=== PATIENT | female | born 1970 | race Caucasian/White ===

== ENCOUNTER 2016-07-15 18:35 | Emergency (ER) | payer OTHER ==
[~2016-07-15] VITALS: Ht 175.3 cm; Wt 147.6 kg
[~2016-07-15 18:35] MED LIST: ANTIVERT25 MG PO; ARMOUR THYROID120 MG PO; ARMOUR THYROID180 MG PO; COZAAR100 MG PO; ESCITALOPRAM OX10 MG PO; HEPARIN SO5000 UNITS SC; HUMALOG100 UNIT/2 SC; LISINOPRIL10 MG PO; LOSARTAN POTAS100 MG PO; MIRALAX17 GM PO; MOTRIN800 MG PO; NAPROSYN500 MG PO; ONDANSETRON ODT4 MG PO; PRAVASTATIN SOD40 MG PO; PROTONIX40 MG PO; SUMATRIPTAN SU100 MG PO; TOPIRAMATE25 MG PO; TOUJEO SOL300 UNIT/1 SC; TRULICITY1.5 MG/0.5 SC; ULTRAM50 MG PO; VESICARE10 MG PO; ZOFRAN ODT4 MG PO; ZYRTEC10 M3 PO
[2016-07-15 18:59] LABS: HEMATOCRIT 41.6 % (36.0-46.0); MCH 29.6 PG (29.0-34.0); MCHC 33.4 G/DL (30.0-36.0); MCV 88.7 FL (83-99); MEAN PLAT.VOLUME 10.5 uM^3 (9.5-12.4); PLATELET COUNT 293 K/uL (156-360); RBC DIS.WIDTH-CV 13.2 % (11.8-14.6); RBC DIS.WIDTH-SD 42.5 % (39-53); RED BLOOD COUNT 4.69 M/uL (3.80-5.20); WHITE BLOOD COUNT 8.7 K/uL (4.1-10.2)
[2016-07-15 19:06] LABS: CHLORIDE 107 mEq/L (99-109); POTASSIUM 4.5 mEq/L (3.7-5.4); SODIUM 141 mEq/L (136-147)
[2016-07-15 19:08] LABS: GLUCOSE 171 mg/dL (70-99)
[2016-07-15 19:09] LABS: ANION GAP 10 MEQ/L (2-14)
[2016-07-15 19:10] LABS: TOTAL BILIRUBIN 0.5 mg/dL (0.0-1.0)
[2016-07-15 19:11] LABS: ALKALINE PHOSPHATASE 76 IU/L (3-129)
[2016-07-15 19:12] LABS: GFR ESTIMATE (CALCULATED) > 59 mL/min/
[2016-07-15 19:13] LABS: UREA NITROGEN (BUN) 15 mg/dL (9-23)
[2016-07-15 19:22] LABS: QUANTITATIVE HCG < 4.0 MIU/ML
[2016-07-15 19:37] LABS: LIPASE 13 U/L (1.0-51.0)
[2016-07-15 19:57] LABS: COLOR YELLOW ((YELLOW)); LEUKOCYTES TRACE; NITRITE POSITIVE; PH, URINE 7.5 (5-8); PROTEIN (STRIP) TRACE; SPECIFIC GRAVITY 1.019 (1.000-1.030)
[2016-07-15 19:58] LABS: ADD MIUA? YES; BILIRUBIN NEGATIVE; BLOOD MODERATE; GLUCOSE (STRIP) NEGATIVE; KETONES NEGATIVE; UROBILINOGEN 0.2 MG/DL (0.2-1.0)
[2016-07-15 19:59] LABS: BACTERIA 2+ /HPF; EPITHELIAL CELLS RARE /HPF; MUCUS RARE /LPF; RED BLOOD CELLS 0-5 /HPF (0-5); UCUL ADDED? NO; WHITE BLOOD CELLS 0-5 /HPF (0-5)
[2016-07-15] MEDS ORDERED: CITRATE OF MAG296 ML PO (22:59)
[2016-07-15 23:52] VITALS: BP 155/88
== END 2016-07-15 23:53 | disposition home or self-care (01) ==
LOC: EME 18:35
DX: K59.00 Constipation, unspecified (principal); R10.9 Unspecified abdominal pain; E11.9 Type 2 diabetes mellitus without complications; G47.30 Sleep apnea, unspecified; Z87.442 Personal history of urinary calculi
CPT/HCPCS: 74177; 80053; 81003; 83690; 84702; 85027; 99281; 99285; J1885; J2405; J7040

== ENCOUNTER 2016-08-16 14:53 | Observation (INO) | payer OTHER ==
[~2016-08-16] VITALS: Ht 175.3 cm; Wt 149.5 kg
[~2016-08-16 14:53] MED LIST changes: +CITRATE OF MAG296 ML PO
[2016-08-16 16:20] LABS: HEMATOCRIT 36.5 % (36.0-46.0); MCH 30.2 PG (29.0-34.0); MCHC 33.7 G/DL (30.0-36.0); MCV 89.7 FL (83-99); MEAN PLAT.VOLUME 10.4 uM^3 (9.5-12.4); PLATELET COUNT 220 K/uL (156-360); RBC DIS.WIDTH-SD 41.9 % (39-53); RED BLOOD COUNT 4.07 M/uL (3.80-5.20); WHITE BLOOD COUNT 8.8 K/uL (4.1-10.2)
[2016-08-16 16:29] LABS: CHLORIDE 109 mEq/L (99-109); POTASSIUM 3.9 mEq/L (3.7-5.4); SODIUM 140 mEq/L (136-147)
[2016-08-16 16:31] LABS: GLUCOSE 147 mg/dL (70-99)
[2016-08-16 16:32] LABS: ANION GAP 10 MEQ/L (2-14)
[2016-08-16 16:35] LABS: GFR ESTIMATE (CALCULATED) > 59 mL/min/
[2016-08-16 16:36] LABS: UREA NITROGEN (BUN) 16 mg/dL (9-23)
[2016-08-16 16:42] LABS: TROP-I INTERPRETATION NEGATIVE; TROPONIN-I < 0.01 ng/mL (0.0-0.30)
[2016-08-16 17:59] LABS: D-DIMER ELISA 0.52 mg/L FEU (< 0.57); PROTHROMBIN TIME 10.6 (9.2-11.2); PTT 28.4 (25-32)
[2016-08-16 18:12] LABS: QUANTITATIVE HCG < 4.0 MIU/ML
[2016-08-16 19:51] LABS: TROP-I INTERPRETATION NEGATIVE; TROPONIN-I < 0.01 ng/mL (0.0-0.30)
[2016-08-16] MEDS ORDERED: LISINOPRIL20 MG PO (21:49)
[2016-08-16] MEDS ORDERED: HUMALOG KW200 UNIT/1 SC (21:51)
[2016-08-16] MEDS ORDERED: VENTOLIN HFA18 GM IH (21:51)
[2016-08-16] MEDS ORDERED: TRESIBA FL200 UNIT/1 SC (21:52)
[2016-08-16] MEDS ORDERED: SINGULAIR10 MG PO (21:52)
[2016-08-16] MEDS ORDERED: IBUPROFEN800 MG PO (21:52)
[2016-08-16 23:59] VITALS: BP 136/62
[2016-08-17 02:53] VITALS: BP 102/50
[2016-08-17 03:21] LABS: HEMATOCRIT 38.1 % (36.0-46.0); MCH 29.7 PG (29.0-34.0); MCHC 33.3 G/DL (30.0-36.0); MCV 89.2 FL (83-99); MEAN PLAT.VOLUME 10.6 uM^3 (9.5-12.4); PLATELET COUNT 242 K/uL (156-360); RBC DIS.WIDTH-SD 42.4 % (39-53); RED BLOOD COUNT 4.27 M/uL (3.80-5.20); WHITE BLOOD COUNT 8.9 K/uL (4.1-10.2)
[2016-08-17 03:34] LABS: CHLORIDE 107 mEq/L (99-109); POTASSIUM 3.7 mEq/L (3.7-5.4); SODIUM 141 mEq/L (136-147)
[2016-08-17 03:36] LABS: GLUCOSE 119 mg/dL (70-99)
[2016-08-17 03:37] LABS: ANION GAP 12 MEQ/L (2-14)
[2016-08-17 03:40] LABS: GFR ESTIMATE (CALCULATED) > 59 mL/min/
[2016-08-17 03:41] LABS: UREA NITROGEN (BUN) 13 mg/dL (9-23)
[2016-08-17 03:45] LABS: TROP-I INTERPRETATION NEGATIVE; TROPONIN-I < 0.01 ng/mL (0.0-0.30)
[2016-08-17 09:04] LABS: TROP-I INTERPRETATION NEGATIVE; TROPONIN-I < 0.01 ng/mL (0.0-0.30)
[2016-08-17 09:17] LABS: POINT-OF-CARE METER ID UU14162513
[2016-08-17 09:50] VITALS: BP 130/60
[2016-08-17 11:49] VITALS: BP 133/69
[2016-08-17 12:05] LABS: POINT-OF-CARE METER ID UU14162513
[2016-08-17 15:39] VITALS: BP 128/58
[2016-08-17 17:31] LABS: POINT-OF-CARE METER ID UU14162513
[2016-08-17 21:16] LABS: POINT-OF-CARE METER ID UU14162513
[2016-08-17 21:50] VITALS: BP 151/65
[2016-08-17 23:30] VITALS: BP 134/65
[2016-08-18 04:22] VITALS: BP 105/55
[2016-08-18 07:33] LABS: ANION GAP 9 MEQ/L (2-14); CHLORIDE 105 MEQ/L (99-109); GFR ESTIMATE (CALCULATED) > 59 mL/min/; GLUCOSE 127 mg/dL (70-99); POTASSIUM 3.4 MEQ/L (3.7-5.4); SAMPLE HEMOLYSIS CHECK 0; SAMPLE ICTERIC CHECK 0; SAMPLE LIPEMIA CHECK 0; SODIUM 140 MEQ/L (136-147); UREA NITROGEN (BUN) 16 mg/dL (9-23)
[2016-08-18 08:45] LABS: POINT-OF-CARE METER ID UU14162513
[2016-08-18 09:37] VITALS: BP 125/60
[2016-08-18 09:48] LABS: ADD MIUA? YES; BILIRUBIN NEGATIVE; BLOOD NEGATIVE; COLOR YELLOW ((YELLOW)); GLUCOSE (STRIP) NEGATIVE; KETONES NEGATIVE; LEUKOCYTES NEGATIVE; NITRITE POSITIVE; PROTEIN (STRIP) NEGATIVE; SPECIFIC GRAVITY 1.018 (1.000-1.030); UROBILINOGEN 0.2 MG/DL (0.2-1.0)
[2016-08-18 10:28] LABS: BACTERIA 2+ /HPF; EPITHELIAL CELLS RARE /HPF; MUCUS 2+ /LPF; RED BLOOD CELLS 0-5 /HPF (0-5); UCUL ADDED? NO; WHITE BLOOD CELLS 0-5 /HPF (0-5)
[2016-08-18] MEDS ORDERED: LASIX20 MG PO (11:20)
[2016-08-18] MEDS ORDERED: KLOR-CON SPRIN10 MEQ PO (11:22)
[2016-08-18] MEDS ORDERED: BACTRIM,SEPT1 TABLET PO (11:49)
[2016-08-18 12:43] LABS: POINT-OF-CARE METER ID UU13113831
[2016-08-18] MEDS ORDERED: VENTOLIN HFA18 GM IH (13:10)
== END 2016-08-18 13:26 | disposition home or self-care (01) ==
LOC: EME 14:53 → 5WEST 22:51 → EDOF 22:51 → 5WEST 23:43
PROVIDERS: Emergency Medicine; Hospitalist
DX: I11.0 Hypertensive heart disease with heart failure (principal); I50.33 Acute on chronic diastolic (congestive) heart failure; E87.6 Hypokalemia; N39.0 Urinary tract infection, site not specified; I27.2 Other secondary pulmonary hypertension; E11.9 Type 2 diabetes mellitus without complications; I48.0 Paroxysmal atrial fibrillation; E78.5 Hyperlipidemia, unspecified; E66.01 Morbid (severe) obesity due to excess calories; Z68.42 Body mass index [BMI] 45.0-49.9, adult; E03.9 Hypothyroidism, unspecified; G47.30 Sleep apnea, unspecified; Z79.4 Long term (current) use of insulin
CPT/HCPCS: 71020; 71275; 80048; 81003; 82948; 83880; 84484; 84702; 85027; 85379; 85610; 85730; 93005; 93306; 94640; 94640 76; 99202; 99281; 99285; G0378; J1644; J1815; J1885; J1940; J2270; J3010; J7030

== ENCOUNTER 2017-07-09 10:18 | Emergency (ER) | payer OTHER ==
[~2017-07-09] VITALS: Ht 175.3 cm; Wt 163.3 kg
[~2017-07-09 10:18] MED LIST changes: +BACTRIM,SEPT1 TABLET PO; +HUMALOG KW200 UNIT/1 SC; +IBUPROFEN800 MG PO; +KLOR-CON SPRIN10 MEQ PO; +LASIX20 MG PO; +LISINOPRIL20 MG PO; +SINGULAIR10 MG PO; +TRESIBA FL200 UNIT/1 SC; +VENTOLIN HFA18 GM IH
[2017-07-09 11:24] LABS: HEMATOCRIT 40.8 % (36.0-46.0); HEMOGLOBIN 14.2 G/DL (11.9-15.5); MCH 31.3 PG (29.0-34.0); MCHC 34.8 G/DL (30.0-36.0); MCV 89.9 FL (83-99); PLATELET COUNT 209 K/uL (156-360); RBC DIS.WIDTH-CV 12.8 % (11.8-14.6); RBC DIS.WIDTH-SD 42.1 % (39-53); RED BLOOD COUNT 4.54 M/uL (3.80-5.20); WHITE BLOOD COUNT 6.4 K/uL (4.1-10.2)
[2017-07-09 11:36] LABS: CHLORIDE 108 mEq/L (99-109); POTASSIUM 3.6 mEq/L (3.7-5.4); SODIUM 143 mEq/L (136-147)
[2017-07-09 11:38] LABS: GLUCOSE 191 mg/dL (70-99)
[2017-07-09 11:42] LABS: CREATININE 0.6 mg/dL (0.6-1.3); GFR ESTIMATE (CALCULATED) > 59 mL/min/
[2017-07-09 11:43] LABS: UREA NITROGEN (BUN) 12 mg/dL (9-23)
[2017-07-09] MEDS ORDERED: BENTYL20 MG PO (13:23)
[2017-07-09] MEDS ORDERED: ZOFRAN4 MG PO (13:23)
[2017-07-09 13:54] VITALS: BP 151/71
== END 2017-07-09 13:55 | disposition home or self-care (01) ==
LOC: EME 10:18
DX: R11.10 Vomiting, unspecified (principal); R19.7 Diarrhea, unspecified; I45.4 Nonspecific intraventricular block; E11.9 Type 2 diabetes mellitus without complications; J45.909 Unspecified asthma, uncomplicated; G47.30 Sleep apnea, unspecified; E28.2 Polycystic ovarian syndrome; Z79.4 Long term (current) use of insulin; Z87.442 Personal history of urinary calculi; Z86.73 Personal history of transient ischemic attack (TIA), and cerebral infarction without residual deficits; Z85.9 Personal history of malignant neoplasm, unspecified; Z88.5 Allergy status to narcotic agent; Z88.1 Allergy status to other antibiotic agents
CPT/HCPCS: 71046; 80048; 83880; 85027; 93005; 94640; 99281; 99285; J7030